=== PATIENT | female | born 1965 | race African-American/Black ===

== ENCOUNTER 2018-05-15 18:05 | Emergency (ER) | payer BC ==
[2018-05-15] MEDS ORDERED: HYDROcodone/Acetaminophen 5/325 mg Tablet ONE (18:59)
--- NOTE | 2018-05-15 19:15 | RAD ---
AP PELVIS: INDICATIONS: Fall with low back pain. FINDINGS: No acute fracture or subluxation is evident. Small phleboliths are seen within the lower pelvis. IMPRESSION: No acute osseous abnormality. POS: [facility]
--- NOTE | 2018-05-15 19:16 | RAD ---
LUMBAR SPINE THREE VIEWS: INDICATIONS: Fall with low back pain with radiation down the right leg. FINDINGS: There are five lumbar type vertebrae. There is mild disk degenerative disease of the lumbar spine. Spine alignment is preserved. Vertebral body heights are within normal limits. Cholecystectomy clip s are seen within the right upper quadrant. There are small phleboliths in the lower pelvis. IMPRESSION: 1. No acute osseous abnormality. 2. Mild lumbar spondylosis. POS: [facility]
[2018-05-15] MEDS ORDERED: Ibuprofen 800 MG TAB ONE (19:29)
== END 2018-05-15 19:56 ==
LOC: ERS 18:05
DX: M54.5 Low back pain (principal); I10 Essential (primary) hypertension; E78.5 Hyperlipidemia, unspecified; E11.9 Type 2 diabetes mellitus without complications; Z79.82 Long term (current) use of aspirin; Z79.899 Other long term (current) drug therapy
CPT/HCPCS: 72100; 72170

== ENCOUNTER 2018-06-28 18:40 | Observation (INO) | payer BC ==
[2018-06-28] MEDS ORDERED: Ketorolac Tromethamine 30 MG/ML VIAL ONE (19:28)
[2018-06-28 19:34] LABS: Bilirubin Negative (Negative); Blood, Urine Trace (Negative); Clarity CLEAR (Clear); Glucose, Urine (Dipstick) Negative (Negative); Leukocyte Negative (Negative); Nitrite Negative (Negative); Protein, Urine (Dipstick) Negative (Neg-Trace); Specific Gravity, Urine 1.018 (1.002-1.036)
[2018-06-28 19:35] LABS: Bacteria/HPF None Seen HPF (None Seen); Hyaline Casts/LPF 0-3 HYALINE CAST LPF (0-3 Hyaline); Pathc Cast-AUWi Flag 0.43 (0-2.49); Squamous Epithelial 0-3 HPF (0-3); WBC/HPF None Seen HPF (0-3)
[2018-06-28 19:52] LABS: Hemoglobin 12.3 g/dL (12.0-16.0); Mean Corpuscular HGB CONC 30.1 g/dL (32.0-36.0); Mean Corpuscular Hemoglobin 21.1 pg (27.0-31.0); Mean Platelet Volume 10.5 fL (7.4-10.4); Platelet Count 307 thou/uL (130-400); RBC Distribution Width 14.4 % (11.5-14.5); Red Blood Cell (RBC) Count 5.82 mill/uL (4.20-5.40); White Blood Cell (WBC) Count 13.9 thou/uL (4.8-10.8)
[2018-06-28 20:14] LABS: ALT (SGPT) 7 U/L (8-55); AST (SGOT) 17 U/L (5-34); Alkaline Phosphatase 129 U/L (40-150); Anion Gap 16 mmol/L (10-20); BUN (Urea Nitrogen) 21 mg/dL (9.8-20.1); Band 4 % (5-11); Bilirubin, Total 0.9 mg/dL (0.2-1.2); Calc. Creatinine Clearance 0 mL/min (70-130); Calcium 9.8 mg/dL (7.8-10.44); Carbon Dioxide 22 mmol/L (22-29); Chloride 100 mmol/L (98-107); Estimated GFR-MDRD 74; Globulin 4.8 g/dL (2.4-3.5); Glucose 84 mg/dL (70-105); Lymphocytes 15 % (21-51); MDiff Complete? YES; Microcytosis SLIGHT = 6-15 cells (100X) (0-5/hpf); Monocytes 1 % (0-10); Neutrophil 80 % (42-75); Ovalocytes SLIGHT = 2-5 cells (100X) (0-1/hpf); PLT Morphology Comment Appears Adequate; Polychromasia SLIGHT = 2-3 cells (100X) (0-2/hpf); Potassium 4.4 mmol/L (3.5-5.1); Protein, Total 8.8 g/dL (6.0-8.3); Sodium 134 mmol/L (136-145); Target Cells SLIGHT = 2-5 cells (100X) (0-1/hpf)
--- NOTE | 2018-06-28 20:51 | RAD ---
CHEST ONE VIEW: 06/28/18 HISTORY: Headache. Throat pain. COMPARISON: 02/17/15 study. Heart size is within normal limits. There is suggestion of some atherosclerotic changes of the aorta. The lungs are clear of any infiltrates. IMPRESSION: 1. Chest shows some atherosclerosis of the aorta. 2. No active intrathoracic disease. POS: [facility]
[2018-06-28] MEDS ORDERED: Clindamycin/D5W 600 mg/50 ml Premix Bag ONE ×2 (20:57→20:59)
--- NOTE | 2018-06-28 21:02 | PDOC.FPRHP ---
- History of Present Illness Chief Complaint: Throat pain History of Present Illness: Ms. Daugherty reports a history of throat pain today. She reports she started feeling bad yesterday and this morning woke up with pain in the back of throat, feeling feverish, and a frontal JACOB. She denies n/v/d , cough, SOB, or mastoid/sinus pain. She has never had anything like this before. she has been tolerating PO intake well and taking all of her meds. ED Course: elevated LA, Strep +, elevated WBC clindamycin, 1L NS, Ketorolac - History PMHx:DMII, HLD, HTN PSHx: gallstone removal, tonsillectomy FHx: NC Social: - Review of Systems General: reports: fever/chills, fatigue. denies: weight/appetite/sleep changes Eyes: denies: eye pain, vision changes ENT: denies: nasal congestion, rhinorrhea Respiratory: denies: cough, congestion, shortness of breath Cardiovascular: denies: chest pain, palpitation Gastrointestinal: denies: nausea, vomiting, diarrhea, constipation, abdominal pain Genitourinary: denies: dysuria Skin: denies: rashes Musculoskeletal: denies: pain Neurological: denies: numbness, syncope - Vital signs BP: 155/81 HR: 103 RR: 25 Tmax: 100.3 Pox: 99% on RA Wt: 132.9kg - Physical Exam Constitutional: NAD, awake, alert and oriented HEENT: normocephalic and atraumatic, grossly normal vision, grossly normal hearing, other (dry mucous membranes, erythematous posterior pharynx) Neck: supple, trachea midline, other (tender lymphadenopathy) Chest: no-tender to palpation, no lesions Heart: normal S1/S2, no murmurs/rubs/gallops, other (tachycardia) Lungs: CTAB, no respiratory distress, good air movement Abdomen: soft, non-tender Musculoskeletal: normal structure, normal tone Neurological: no focal deficit Skin: no rash/lesions, good turgor Heme/Lymphatic: no unusual bruising or bleeding FMR H&P: Results - Labs Result Diagrams: 06/28/18 23:41 06/28/18 23:41 Lab results: WBC 13.9 thou/uL (4.8-10.8) H 06/28/18 19:42 Hgb 12.3 g/dL (12.0-16.0) 06/28/18 19:42 Hct 40.7 % (36.0-47.0) 06/28/18 19:42 MCV 70.0 fL (78.0-98.0) L 06/28/18 19:42 Plt Count 307 thou/uL (130-400) 06/28/18 19:42 Band Neuts % (Manual) 4 % (5-11) L 06/28/18 19:42 Sodium 134 mmol/L (136-145) L 06/28/18 19:42 Potassium 4.4 mmol/L (3.5-5.1) 06/28/18 19:42 Chloride 100 mmol/L (98-107) 06/28/18 19:42 Carbon Dioxide 22 mmol/L (22-29) 06/28/18 19:42 BUN 21 mg/dL (9.8-20.1) H 06/28/18 19:42 Creatinine 0.96 mg/dL (0.6-1.1) 06/28/18 19:42 Glucose 84 mg/dL (70-105) 06/28/18 19:42 Lactic Acid 2.9 mmol/L (0.5-2.2) H 06/28/18 19:42 Calcium 9.8 mg/dL (7.8-10.44) 06/28/18 19:42 Total Bilirubin 0.9 mg/dL (0.2-1.2) 06/28/18 19:42 AST 17 U/L (5-34) 06/28/18 19:42 ALT 7 U/L (8-55) L 06/28/18 19:42 Alkaline Phosphatase 129 U/L (40-150) 06/28/18 19:42 Serum Total Protein 8.8 g/dL (6.0-8.3) H 06/28/18 19:42 Albumin 4.0 g/dL (3.5-5.0) 06/28/18 19:42 Urine Ketones Trace mg/dL (Negative) H 06/28/18 19:21 Urine Blood Trace (Negative) H 06/28/18 19:21 Urine Nitrite Negative (Negative) 06/28/18 19:21 Ur Leukocyte Esterase Negative (Negative) 12/04/18 19:21 Urine RBC 4-6 HPF (0-3) 06/28/18 19:21 Urine WBC None Seen HPF (0-3) 06/28/18 19:21 Ur Squamous Epith Cells 0-3 HPF (0-3) 06/28/18 19:21 Urine Bacteria None Seen HPF (None Seen) 06/28/18 19:21 FMR H&P: A/P - Problem List (1) Sepsis Current Visit: Yes Status: Acute Code(s): A41.9 - SEPSIS, UNSPECIFIED ORGANISM (2) Acute streptococcal pharyngitis Current Visit: Yes Status: Acute Code(s): J02.0 - STREPTOCOCCAL PHARYNGITIS (3) HTN (hypertension) Current Visit: Yes Status: Acute Code(s): I10 - ESSENTIAL (PRIMARY) HYPERTENSION (4) HLD (hyperlipidemia) Current Visit: Yes Status: Acute Code(s): E78.5 - HYPERLIPIDEMIA, UNSPECIFIED (5) DMII (diabetes mellitus, type 2) Current Visit: Yes Status: Acute - Plan Sepsis 2/2 streptococcal pharyngitis - elevated WBC, LA, tachycardia, +rapid strep - additional 1 bolus, 125 ml/hr to follow - clindamycin PO - vital signs q4hr - Throat culture, repeat LA pending Volume depletion - IVF resuscitation as above - monitor fluid output HTN - elevated pressures in ED, continue home meds in AM DMII - continue home meds - mild SSI HLD - continue home medications Code: full ppx: lovenox Disposition/LOS: observation on medical, monitor fluid intake, abx treatment FMR H&P: Upper Level - Pertinent history Pt is a 52 y/o AAF with HTN, DM2 and HLD presenting for sore throat. Started this am. Associated chills/shakes, fever, generalized weakness, and JACOB. Has been taking her medications as prescribed and recently saw her PCP for refills. Does state she feels she is dehydrated. ER rapid strep positive and given Clindamycin. Presented tachycardic at 125 which improved with 1L NS to 103. - Pertinent findings Physical Exam: GEN: NAD lying in hospital bed ENT: pharyngitis erythematous and does have submandibular adenopathy. Tonsils removed. no mastoid ttp or sinus ttp. no neck stiffness or rigidity/pain. CARDIO: RRR, No MRG LUNGS: CTAB, No wheezes, rales, ronchi NEURO: Alert and oriented x4, no focal deficits, strength and sensation preserved in all extremities. MSK: No LE edema - Plan Date/Time: 06/28/182058 I, Edmundo Montenegro, have evaluated this patient and agree with findings/plan as outlined by compliance intern resident. Pertinent changes/additions are listed here. Assessment/Plan: 1.Sepsis 2/2 likely bacterial pharyngitis- Pos rapid strep in ED, obtaining culture. Will continue IVF as pt is also somewhat volume depleted. WBC elevated with initial Lactic Acid 2.9. Regarding other sources; Blood culture ordered and UA pending. Pain improving with motrin. No evidence on exam of retropharyngeal abscess. Will monitor clinically, but she is currently stable. 2. HTN Has been elevated, continue home meds. 3. Continue home metformin 4. HLD: Continue statin Attending Addendum - Attending Addendum Date/Time: 06/29/18 0840 I personally evaluated the patient and discussed the management with Dr. Smallwood at time of admission last night, I agree with the History, Examination, Assessment and Plan documented above with any addition or exceptions noted below.
[2018-06-28] MEDS ORDERED: Dextrose 50% Abboject 50 ML SYRINGE SLOW IVP PRN (22:31)
[2018-06-28] MEDS ORDERED: Lactated Ringer's 1,000 ML IV SCH (22:31)
[2018-06-28] MEDS ORDERED: Dextrose 5% in Water 1,000 ML IV PRN (22:31)
[2018-06-28] MEDS ORDERED: HumaLOG 300 UNITS/3 ML VIAL SC PRN ×2 (22:31)
[2018-06-28 22:42] VITALS: BMI 51.5
[2018-06-28] MEDS ORDERED: Ibuprofen 600 MG TAB PO SCH (22:45)
[2018-06-28] MEDS ORDERED: Clindamycin 150 MG CAP PO SCH (22:45)
[2018-06-28] MEDS: Lactated Ringer's 1,000 ML IV SCH (23:03)
[2018-06-28] MEDS: Acetaminophen 325 MG TAB PO PRN (23:04)
[2018-06-29 03:45] LABS: #Eosinphils 0.1 thou/uL (0.0-0.7); #Lymphocytes 1.5 thou/uL (1.20-3.40); #Monocytes 0.7 thou/uL (0.11-0.59); #Neutrophils 10.1 thou/uL (1.40-6.50); %Basophils 0.1 % (0.0-1.0); %Eosinophils 0.5 % (0.0-10.0); %Lymphocytes 12.3 % (21.0-51.0); %Monocytes 5.3 % (0.0-10.0); %Neutrophils 81.8 % (42.0-75.0); Hemoglobin 10.9 g/dL (12.0-16.0); Mean Corpuscular Hemoglobin 21.9 pg (27.0-31.0); Mean Corpuscular Volume 70.5 fL (78.0-98.0); Mean Platelet Volume 11.1 fL (7.4-10.4); Platelet Count 303 thou/uL (130-400); RBC Distribution Width 14.6 % (11.5-14.5); Red Blood Cell (RBC) Count 4.98 mill/uL (4.20-5.40); White Blood Cell (WBC) Count 12.4 thou/uL (4.8-10.8)
[2018-06-29 03:58] LABS: ALT (SGPT) Less than 7 U/L (8-55); AST (SGOT) 13 U/L (5-34); Albumin 3.4 g/dL (3.5-5.0); Alkaline Phosphatase 102 U/L (40-150); Anion Gap 13 mmol/L (10-20); BUN (Urea Nitrogen) 21 mg/dL (9.8-20.1); Bilirubin, Total 0.9 mg/dL (0.2-1.2); Calc. Creatinine Clearance 149 mL/min (70-130); Calcium 9.1 mg/dL (7.8-10.44); Carbon Dioxide 23 mmol/L (22-29); Chloride 104 mmol/L (98-107); Estimated GFR-MDRD 77; Globulin 3.8 g/dL (2.4-3.5); Glucose 90 mg/dL (70-105); Potassium 4.2 mmol/L (3.5-5.1); Protein, Total 7.2 g/dL (6.0-8.3); Sodium 136 mmol/L (136-145)
[2018-06-29] MEDS: Acetaminophen 325 MG TAB PO PRN (05:11)
--- NOTE | 2018-06-29 05:55 | PDOC.FM ---
- Subjective Subjective: Patient resting comfortably in bed. Tolerating PO well. No overnight events. Patient complaining of throat pain. Denies fevers/chills overnight, no cough or SOB. Denies NVD. - Objective Vital Signs & Weight: Vital Signs (12 hours) Temp Pulse Resp BP Pulse Ox 06/29/18 05:17 97.5 F L 89 16 122/63 96 06/28/18 22:26 98.5 F 98 18 119/59 L 95 Weight Weight 134.49 kg I&O: 06/27/18 06/28/18 06/29/18 06:59 06:59 06:59 Intake Total 1880 Balance 1879 Result Diagrams: 06/28/18 23:41 06/28/18 23:41 <Sheri Leija - Last Filed: 06/29/18 07:58> - Objective Vital Signs & Weight: Vital Signs (12 hours) Temp Pulse Resp BP Pulse Ox 06/29/18 07:24 98.6 F 79 16 121/63 94 L 06/29/18 05:17 97.5 F L 89 16 122/63 96 06/28/18 22:26 98.5 F 98 18 119/59 L 95 Weight Weight 134.49 kg I&O: 06/28/18 06/29/18 06/30/18 06:59 06:59 06:59 Intake Total 1879 Balance 1879 Result Diagrams: 06/28/18 23:41 06/28/18 23:41 <Win Rivera - Last Filed: 06/29/18 09:42> Phys Exam - Physical Examination Constitutional: NAD HEENT: PERRLA, moist MMs, sclera anicteric erythematous posterior pharynx, no exudates Neck: full ROM Respiratory: clear to auscultation bilateral Cardiovascular: RRR, no significant murmur, no rub Gastrointestinal: soft, non-tender, positive bowel sounds Musculoskeletal: no edema, pulses present Neurological: non-focal, moves all 4 limbs Psychiatric: normal affect, A&O x 3 Skin: no rash <Sheri Leija - Last Filed: 06/29/18 07:58> Dx/Plan (1) Acute streptococcal pharyngitis Code(s): J02.0 - STREPTOCOCCAL PHARYNGITIS Status: Acute (2) DMII (diabetes mellitus, type 2) Status: Acute (3) HLD (hyperlipidemia) Code(s): E78.5 - HYPERLIPIDEMIA, UNSPECIFIED Status: Acute (4) HTN (hypertension) Code(s): I10 - ESSENTIAL (PRIMARY) HYPERTENSION Status: Acute (5) Sepsis Code(s): A41.9 - SEPSIS, UNSPECIFIED ORGANISM Status: Acute - Plan Plan: Sepsis 2/2 streptococcal pharyngitis - elevated WBC, LA, tachycardia, +rapid strep on arrival - 06/29/18 - VS wnl, WBC has trended down - group A strep + throat cx - continue clindamycin PO, chloroseptic spray - vital signs q4hr - LA 2.9->1 Volume depletion - IVF resuscitation as above - If patient tolerating PO today will discontinue fluids - monitor fluid output HTN - elevated pressures on arrival, will continue home meds - Monitor BP DMII - continue home meds - mild SSI HLD - continue home medications Dispo: observation, likely discharge later today Code: full ppx: lovenox <Sheri Leija - Last Filed: 06/29/18 07:58> Attending Addendum - Attending Addendum Date/Time: 06/29/18 0939 I personally evaluated the patient and discussed the management with Dr. Leija I agree with the History, Examination, Assessment and Plan documented above with any addition or exceptions noted below. 52F admitted for strep pharyngitis. She has been afebrile since admission. No evidence of retropharyngeal abscess at this time. No leukocytosis on AM labs, and her lactic acid has normalized with IVF. Continue antibiotics in OP setting. Discharge today with f/u with her PCP. <Win Rivera - Last Filed: 06/29/18 09:42>
[2018-06-29] MEDS ORDERED: Clindamycin 150 MG CAP PO SCH (06:00)
[2018-06-29] MEDS ORDERED: Ibuprofen 600 MG TAB PO SCH (06:00)
[2018-06-29] MEDS ORDERED: Chloraseptic Spray 180 ml Bottle PO PRN (06:51)
[2018-06-29 07:46] VITALS: BP 121/63; TEMP 98.6
[2018-06-29] MEDS ORDERED: Enoxaparin Sodium 30 MG/0.3 ML SYRINGE SC SCH (09:00)
[2018-06-29] MEDS ORDERED: Enoxaparin Sodium 40 MG/0.4 ML SYRINGE SC SCH (09:00)
[2018-06-29] MEDS ORDERED: Cyclobenzaprine 10 MG TAB PO PRN (09:13)
[2018-06-29] MEDS: Lactated Ringer's 1,000 ML IV SCH (10:05)
[2018-06-29] MEDS ORDERED: metFORMIN 500 MG TAB PO SCH (17:00)
[2018-06-29] MEDS ORDERED: Atorvastatin Calcium 20 MG TAB PO SCH (21:00)
[2018-06-30] MEDS ORDERED: Aspirin 81 mg Enteric Coated Tablet PO SCH (09:00)
[2018-06-30] MEDS ORDERED: Lisinopril 20 MG TAB PO SCH (09:00)
[2018-06-30] MEDS ORDERED: Hydrochlorothiazide 25 MG TAB PO SCH (09:00)
--- NOTE | 2018-07-01 14:08 | DIS ---
DATE OF ADMISSION: 06/28/2018 DATE OF DISCHARGE: 06/29/2018 RESIDENT: Sheri Leija MD. ADMITTING ATTENDING: Enrico Sharp MD. DISCHARGE ATTENDING: Win Rivera MD. CONSULTS: None. PROCEDURES: None. PRIMARY DIAGNOSIS: Group A streptococcal pharyngitis. SECONDARY DIAGNOSES: Volume depletion, resolved; hypertension; diabetes, type 2; and hyperlipidemia. DISCHARGE MEDICATIONS: 1. Tylenol regular strength 650 mg oral every 4 hours as needed. 2. Motrin 600 mg oral every 8 hours. 3. Penicillin V potassium 500 mg oral twice daily. 4. Metoprolol succinate 25 mg oral daily. 5. Aspirin 81 mg oral daily. 6. Metformin 500 mg oral twice daily. 7. Zocor 40 mg oral at bedtime. 8. Lisinopril 20 mg oral daily. 9. Hydrochlorothiazide 25 mg oral daily. 10. Flexeril 10 mg oral 3 times daily as needed. Discontinued medications: None. HISTORY OF PRESENT ILLNESS/HOSPITAL COURSE: This is a 52-year-old female, who came in with a history of throat pain that began earlier that morning. The patient reported feeling feverish and had a headache. The patient denied nausea, vomiting, diarrhea, cough, shortness of breath, or sinus pain. The patient had been taking p.o. well and has been taking all of her meds. The patient tested positive on her rapid strep test and blood culture positive for group A strep. The patient presented with an elevated lactic acid and white count. The patient also had a fever and was tachycardiac and met criteria for sepsis. The patient was given a dose of clindamycin, 1 L of normal saline, and Ketoralac in the ED. The patient was admitted for observation with improvement of her symptoms. The patient was given additional fluids and was discharged with penicillin v for her strep throat. DISPOSITION: Stable. DISCHARGE INSTRUCTIONS: 1. Location: Home. 2. Diet: Diabetic. 3. Activity: Ad-sascha. 4. Followup: With PCP within 1 week. Job ID: [id number]
--- NOTE | 2018-07-02 12:06 | EKG ---
Test Reason : Blood Pressure : / mmHG Vent. Rate : 121 BPM Atrial Rate : 121 BPM P-R Int : 162 ms QRS Dur : 078 ms QT Int : 302 ms P-R-T Axes : 061 024 048 degrees QTc Int : 428 ms Sinus tachycardia Otherwise normal ECG Confirmed by RAJINDER TAYLOR DO ([id number]), purchasing expeditor NAS [id number] [id number] on 07/02/2018 12:05:51 PM Referred By: Confirmed By:RAJINDER TAYLOR DO
== END 2018-06-29 11:00 | disposition home or self-care (01) ==
LOC: ERS 18:40 → 2SW 22:26
PROVIDERS: ADMIT Family Medicine; ATTEND Family Medicine
DX: A41.9 Sepsis, unspecified organism (principal); J02.0 Streptococcal pharyngitis; I10 Essential (primary) hypertension; E78.5 Hyperlipidemia, unspecified; E11.9 Type 2 diabetes mellitus without complications; Z79.82 Long term (current) use of aspirin; Z79.84 Long term (current) use of oral hypoglycemic drugs; Z79.899 Other long term (current) drug therapy
CPT/HCPCS: 36415; 36416; 71045; 80053; 81003; 81015; 83605; 85025; 87040; 87430; 87804; 93005; 96361; 96365; 96375; G0378; J1885; J3490

== ENCOUNTER 2018-10-04 13:19 | Outpatient (CLI) | payer BC ==
--- NOTE | 2018-10-05 15:33 | MMO ---
MAMMO Bilat Diag [facility]. CLINICAL HISTORY: Patient is 52 years old and is seen for diagnostic exam. The patient has the following family history of breast cancer: mother. The patient has no personal history of cancer. The patient has a history of right Ultrasound Guided Core Biopsy in May, - benign. VIEWS: The views performed were: bilateral craniocaudal with tomosynthesis; bilateral mediolateral oblique with tomosynthesis; and bilateral mediolateral. FILMS COMPARED: The present examination has been compared to prior imaging studies performed at [facility] on 06/09/2011 and 08/29/2012. MAMMOGRAM FINDINGS: There are scattered fibroglandular densities. Benign calcifications are noted bilaterally. There are no suspicious masses, calcifications or areas of architectural distortion. Nodularity is stable. IMPRESSION: FINDINGS IN BOTH BREASTS ARE BENIGN. A ROUTINE FOLLOW-UP MAMMOGRAM IN 1 YEAR IS RECOMMENDED. THE RESULTS OF THIS EXAM WERE SENT TO THE PATIENT. ACR BI-RADS Category 2 - Benign finding MAMMOGRAPHY NOTE: 1. A negative mammogram report should not delay a biopsy if a dominant of clinically suspicious mass is present. 2. Approximately 10% to 15% of breast cancers are not detected by mammography. 3. Adenosis and dense breasts may obscure an underlying neoplasm.
== END 2018-10-04 13:20 | disposition home or self-care (01) ==
LOC: BICMAMMO 13:19
PROVIDERS: ATTEND Family Medicine
DX: R92.8 Other abnormal and inconclusive findings on diagnostic imaging of breast (principal); Z80.3 Family history of malignant neoplasm of breast
CPT/HCPCS: 77066; G0279

== ENCOUNTER 2019-02-26 22:32 | Emergency (ER) | payer BC ==
[2019-02-26 23:19] LABS: Hemoglobin 12.4 g/dL (12.0-16.0); Mean Corpuscular HGB CONC 29.1 g/dL (32.0-36.0); Mean Corpuscular Hemoglobin 21.1 pg (27.0-31.0); Mean Corpuscular Volume 72.4 fL (78.0-98.0); Mean Platelet Volume 10.4 fL (7.4-10.4); Platelet Count 268 thou/uL (130-400); RBC Distribution Width 14.6 % (11.5-14.5); Red Blood Cell (RBC) Count 5.88 mill/uL (4.20-5.40)
[2019-02-26 23:31] LABS: #Eosinphils 0.4 thou/uL (0.0-0.7); #Lymphocytes 2.9 thou/uL (1.20-3.40); #Monocytes 0.8 thou/uL (0.11-0.59); #Neutrophils 8.9 thou/uL (1.40-6.50); %Basophils 0.2 % (0.0-1.0); %Eosinophils 2.9 % (0.0-10.0); %Monocytes 6.3 % (0.0-10.0); %Neutrophils 68.6 % (42.0-75.0); Hypochromia SLIGHT = 6-15 cells (100X) (0-5/hpf); MDiff Complete? YES; Platelet Morphology Comment Appears Adequate
[2019-02-26 23:38] LABS: ALT (SGPT) 8 U/L (8-55); AST (SGOT) 16 U/L (5-34); Alkaline Phosphatase 106 U/L (40-150); Anion Gap 17 mmol/L (10-20); BUN (Urea Nitrogen) 32 mg/dL (9.8-20.1); Bilirubin, Total 0.7 mg/dL (0.2-1.2); Calc. Creatinine Clearance 0 mL/min (70-130); Calcium 9.8 mg/dL (7.8-10.44); Carbon Dioxide 20 mmol/L (22-29); Chloride 107 mmol/L (98-107); Estimated GFR-MDRD 51; Globulin 4.2 g/dL (2.4-3.5); Glucose 156 mg/dL (70-105); Potassium 4.3 mmol/L (3.5-5.1); Protein, Total 8.2 g/dL (6.0-8.3); Sodium 140 mmol/L (136-145)
== END 2019-02-27 | disposition home or self-care (01) ==
LOC: ERS 22:32
DX: R55 Syncope and collapse (principal); E11.9 Type 2 diabetes mellitus without complications; E78.5 Hyperlipidemia, unspecified; I10 Essential (primary) hypertension
CPT/HCPCS: 36415; 80053; 85025; 93005

== ENCOUNTER 2019-06-29 21:08 | Emergency (ER) | payer BC ==
[2019-06-29] MEDS ORDERED: Ketorolac Tromethamine 30 MG/ML VIAL ONE (22:46)
== END 2019-06-29 23:03 | disposition home or self-care (01) ==
LOC: ERS 21:08
DX: B34.9 Viral infection, unspecified (principal); E11.9 Type 2 diabetes mellitus without complications; E78.5 Hyperlipidemia, unspecified; I10 Essential (primary) hypertension; Z79.899 Other long term (current) drug therapy
CPT/HCPCS: 87804; 96372; 99284; J1885

== ENCOUNTER 2020-09-19 08:48 | Outpatient (CLI) | payer BC ==
--- NOTE | 2020-09-19 10:14 | MMO ---
Bilateral MAMMO Bilat Screen [facility]. CLINICAL HISTORY: Patient is 54 years old and is seen for screening. The patient has the following family history of breast cancer: mother. The patient has no personal history of cancer. The patient has a history of right Ultrasound Guided Core Biopsy in May, - benign. VIEWS: The views performed were: bilateral craniocaudal; bilateral craniocaudal with tomosynthesis; bilateral mediolateral oblique; and bilateral mediolateral oblique with tomosynthesis. FILMS COMPARED: The present examination has been compared to prior imaging studies performed at [facility] on 06/09/2011, 08/29/2012 and 10/04/2018. This study has been interpreted with the assistance of computer-aided detection. MAMMOGRAM FINDINGS: There are scattered fibroglandular densities. There are stable benign appearing calcifications seen in both breasts. Nodularity is stable. There are no suspicious masses, suspicious calcifications, or new areas of architectural distortion. IMPRESSION: THERE IS NO MAMMOGRAPHIC EVIDENCE OF MALIGNANCY. A ROUTINE FOLLOW-UP MAMMOGRAM IN 1 YEAR IS RECOMMENDED. THE RESULTS OF THIS EXAM WERE SENT TO THE PATIENT. ACR BI-RADS Category 2 - Benign finding MAMMOGRAPHY NOTE: 1. A negative mammogram report should not delay a biopsy if a dominant of clinically suspicious mass is present. 2. Approximately 10% to 15% of breast cancers are not detected by mammography. 3. Adenosis and dense breasts may obscure an underlying neoplasm. Reported by: RICARDO ROJAS MD Electonically Signed: [id number]
== END 2020-09-19 08:49 | disposition home or self-care (01) ==
LOC: BICMAMMO 08:48
PROVIDERS: ATTEND Family Medicine
DX: Z12.31 Encounter for screening mammogram for malignant neoplasm of breast (principal); Z80.3 Family history of malignant neoplasm of breast
CPT/HCPCS: 77063; 77067

== ENCOUNTER 2021-09-24 11:33 | Outpatient (CLI) | payer BC | END 2021-09-24 11:34 | disposition home or self-care (01) | LOC: BICMAMMO 11:33 | PROVIDERS: ATTEND Family Medicine | DX: Z12.31 Encounter for screening mammogram for malignant neoplasm of breast (principal); Z80.3 Family history of malignant neoplasm of breast | CPT/HCPCS: 77063; 77067 ==

== ENCOUNTER 2022-10-05 08:17 | Outpatient (CLI) | payer BC | END 2022-10-05 08:18 | disposition home or self-care (01) | LOC: BICMAMMO 08:17 | PROVIDERS: ATTEND Family Medicine | DX: Z12.31 Encounter for screening mammogram for malignant neoplasm of breast (principal); Z80.3 Family history of malignant neoplasm of breast; Z91.89 Other specified personal risk factors, not elsewhere classified | CPT/HCPCS: 77063; 77067 ==